=== PATIENT | male | born 1970 | race Caucasian/White ===

== ENCOUNTER 2018-02-22 12:52 | Inpatient (IN) | payer BC ==
[2018-02-22 14:29] LABS: ADD MAN DIFF? NO
[2018-02-22 14:33] LABS: BASOPHILS % 0.3 % (0.0-2.0); EOSINOPHILS # 0.2 10^3/ul (0.0-0.5); EOSINOPHILS % 1.7 % (0.0-7.0); HEMATOCRIT 43.7 % (42.0-52.0); HEMOGLOBIN 14.9 g/dl (14.0-18.0); LYMPHOCYTES # 1.9 10^3/ul (0.8-2.9); MEAN CORPUSCULAR HEMOGLOBIN 29.8 pg (29.0-33.0); MEAN CORPUSCULAR HGB CONC 34.1 g/dl (32.0-37.0); MEAN CORPUSCULAR VOLUME 87.4 fl (82.0-101.0); MEAN PLATELET VOLUME 10.5 fl (7.4-10.4); MONOCYTE # 1.3 10^3/ul (0.3-0.9); MONOCYTES % 10.6 % (0.0-11.0); NEUTROPHIL # 9.1 10^3/ul (1.6-7.5); NEUTROPHILS % 71.9 % (39.0-77.0); PLATELET COUNT 175 10^3/UL (140-415); RED CELL DISTRIBUTION WIDTH 13.2 % (11.5-14.5)
[2018-02-22 14:33] LABS: WHITE BLOOD COUNT 12.7 10^3/ul (4.8-10.8)
[2018-02-22 14:36] LABS: ADD UMIC YES; UR ASCORBIC ACID NEGATIVE (NEGATIVE); UR BILIRUBIN (Dip) NEGATIVE (NEGATIVE); UR BLOOD (Dip) 1+ mg/dL (NEGATIVE); UR CLARITY CLEAR (CLEAR); UR COLOR YELLOW (YELLOW); UR GLUCOSE (Dip) NEGATIVE (NEGATIVE); UR KETONES (Dip) NEGATIVE (NEGATIVE); UR LEUKOCYTE ESTERASE (Dip) NEGATIVE Leu/ul (NEGATIVE); UR NITRITE (Dip) NEGATIVE (NEGATIVE); UR RBC 0 /HPF (0-5); UR SPECIFIC GRAVITY (Dip) 1.004 (1.003-1.030); UR TOTAL PROTEIN (Dip) NEGATIVE (NEGATIVE); UR UROBILINOGEN (Dip) NEGATIVE (NEGATIVE); UR WBC 0 /HPF (0-5)
[2018-02-22 14:53] LABS: ALANINE AMINOTRANSFERASE 61 IU/L (13-69); ALBUMIN 4.5 g/dl (3.3-4.9); ALBUMIN/GLOBULIN RATIO 1.21; ALKALINE PHOSPHATASE 123 IU/L (42-121); ANION GAP 15 (8-16); ASPARTATE AMINO TRANSFERASE 66 IU/L (15-46); BILIRUBIN,INDIRECT 5.9 mg/dl (0-1.1); BILIRUBIN,TOTAL 5.9 mg/dl (0.2-1.3); BLOOD UREA NITROGEN 9 mg/dl (7-20); CALCIUM 9.4 mg/dl (8.4-10.2); CARBON DIOXIDE 29 mmol/L (21-31); CHLORIDE 105 mmol/L (97-110); CREATININE 0.84 mg/dl (0.61-1.24); GLUCOSE 114 mg/dl (70-220); LIPASE 60 U/L (23-300); POTASSIUM 3.6 mmol/L (3.5-5.1); SODIUM 145 mmol/L (135-144); TOTAL PROTEIN 8.2 g/dl (6.1-8.1)
[2018-02-22] MEDS: IBUPROFEN 800 MG TAB PO (15:31)
[2018-02-22] MEDS: SODIUM CHLORIDE 0.9% 1L BAG IV* (15:32)
[2018-02-22] MEDS: VANCOMYCIN 1 GM (PMX) 250 ML IVPB (15:32)
[2018-02-22 16:33] LABS: LACTIC ACID 1.5 mmol/L (0.5-2.0)
[2018-02-22] MEDS ORDERED: LORAZEPAM 2 MG INJ IV ×2 (17:00→17:30)
[2018-02-22] MEDS ORDERED: MAGNESIUM HYDROXIDE 30ML CUP PO (17:00)
[2018-02-22] MEDS ORDERED: HYDROCODONE/APAP (5/325) TAB PO (17:00)
[2018-02-22] MEDS ORDERED: ACETAMINOPHEN 325 MG TAB PO (17:00)
[2018-02-22] MEDS ORDERED: NACL 0.9% 3 ML SYG IV (17:00)
[2018-02-22] MEDS ORDERED: DOCUSATE SODIUM 100 MG CAP PO (17:00)
[2018-02-22] MEDS ORDERED: ONDANSETRON 4 MG INJ IV ×2 (17:00)
[2018-02-22] MEDS ORDERED: CHLORDIAZEPOXIDE 25 MG CAP PO (18:00)
[2018-02-22 18:50] LABS: GAMMA GLUTAMYL TRANSPEPTIDASE 47 IU/L (0-50); LACTIC ACID 1.2 mmol/L (0.5-2.0)
[2018-02-22] MEDS: DEXTROSE 5%-0.45% NACL 1,000 ML IV (18:54)
[2018-02-22] MEDS: AZTREONAM 1 GM/NS (PMX) 50 ML IVPB (18:54)
[2018-02-22 19:08] LABS: INR 1.26; PT RATIO 1.3
[2018-02-22 19:09] LABS: PARTIAL THROMBOPLASTIN TIME 35.8 Sec (25.0-35.0)
[2018-02-22 20:51] LABS: LACTIC ACID 1.2 mmol/L (0.5-2.0)
[2018-02-23] MEDS: PANTOPRAZOLE (EC) 40 MG TAB PO (05:47)
[2018-02-23 05:49] LABS: ADD MAN DIFF? NO
[2018-02-23 06:07] LABS: WHITE BLOOD COUNT 10.3 10^3/ul (4.8-10.8)
[2018-02-23 06:07] LABS: BASOPHILS % 0.4 % (0.0-2.0); EOSINOPHILS # 0.3 10^3/ul (0.0-0.5); EOSINOPHILS % 2.4 % (0.0-7.0); HEMATOCRIT 39.2 % (42.0-52.0); HEMOGLOBIN 13.4 g/dl (14.0-18.0); LYMPHOCYTES # 1.4 10^3/ul (0.8-2.9); LYMPHOCYTES % 13.5 % (15.0-51.0); MEAN CORPUSCULAR HEMOGLOBIN 30.4 pg (29.0-33.0); MEAN CORPUSCULAR HGB CONC 34.2 g/dl (32.0-37.0); MEAN CORPUSCULAR VOLUME 88.9 fl (82.0-101.0); MEAN PLATELET VOLUME 10.4 fl (7.4-10.4); MONOCYTE # 1.2 10^3/ul (0.3-0.9); MONOCYTES % 11.6 % (0.0-11.0); NEUTROPHIL # 7.4 10^3/ul (1.6-7.5); NEUTROPHILS % 71.4 % (39.0-77.0); POSITIVE DIFF @See below; RED BLOOD COUNT 4.41 10^6/ul (4.70-6.10); RED CELL DISTRIBUTION WIDTH 13.4 % (11.5-14.5)
[2018-02-23 06:11] LABS: PLATELET COUNT 134 10^3/UL (140-415)
[2018-02-23] MEDS: DEXTROSE 5%-0.45% NACL 1,000 ML IV ×2 (06:16→19:59)
[2018-02-23 06:33] LABS: ALANINE AMINOTRANSFERASE 47 IU/L (13-69); ALBUMIN 3.6 g/dl (3.3-4.9); ALBUMIN/GLOBULIN RATIO 1.12; ALKALINE PHOSPHATASE 91 IU/L (42-121); ANION GAP 8 (8-16); ASPARTATE AMINO TRANSFERASE 41 IU/L (15-46); BLOOD UREA NITROGEN 7 mg/dl (7-20); CALCIUM 8.5 mg/dl (8.4-10.2); CARBON DIOXIDE 30 mmol/L (21-31); CHLORIDE 109 mmol/L (97-110); CREATININE 0.66 mg/dl (0.61-1.24); GLUCOSE 138 mg/dl (70-220); MAGNESIUM 2.1 mg/dl (1.7-2.5); POTASSIUM 4.1 mmol/L (3.5-5.1); SODIUM 143 mmol/L (135-144); TOTAL PROTEIN 6.8 g/dl (6.1-8.1)
[2018-02-23] MEDS: MULTIVITAMINS 10 ML, THIAMINE 100 MG, FOLIC ACID 1 MG in SOD CHLORIDE 0.9% 1,000 ML IVPB (11:05)
[2018-02-23] MEDS: IBUPROFEN 600 MG TAB PO (14:54)
[2018-02-24] MEDS: PANTOPRAZOLE (EC) 40 MG TAB PO (06:16)
[2018-02-24 06:26] LABS: ALANINE AMINOTRANSFERASE 41 IU/L (13-69); ALBUMIN/GLOBULIN RATIO 1.11; ALKALINE PHOSPHATASE 87 IU/L (42-121); ANION GAP 14 (8-16); ASPARTATE AMINO TRANSFERASE 26 IU/L (15-46); BILIRUBIN,INDIRECT 2.8 mg/dl (0-1.1); BILIRUBIN,TOTAL 2.8 mg/dl (0.2-1.3); BLOOD UREA NITROGEN 8 mg/dl (7-20); CALCIUM 8.7 mg/dl (8.4-10.2); CARBON DIOXIDE 29 mmol/L (21-31); CHLORIDE 106 mmol/L (97-110); CREATININE 0.74 mg/dl (0.61-1.24); GLUCOSE 141 mg/dl (70-220); MAGNESIUM 2.2 mg/dl (1.7-2.5); POTASSIUM 3.8 mmol/L (3.5-5.1); SODIUM 145 mmol/L (135-144); TOTAL PROTEIN 7.6 g/dl (6.1-8.1)
[2018-02-24] MEDS: DEXTROSE 5%-0.45% NACL 1,000 ML IV (09:47)
== END 2018-02-24 12:35 | disposition home or self-care (01) | DRG 392 ==
LOC: FTE 12:52 → MS2 16:49
DX: K52.9 Noninfective gastroenteritis and colitis, unspecified (principal); R17 Unspecified jaundice; N28.1 Cyst of kidney, acquired; D72.829 Elevated white blood cell count, unspecified; R74.0 Nonspecific elevation of levels of transaminase and lactic acid dehydrogenase [LDH]; Z72.89 Other problems related to lifestyle
CPT/HCPCS: 74176; 76700; 80053; 81001; 82977; 83605; 83690; 83735; 85025; 85610; 85730; 87040; 96374; 99291-25

== ENCOUNTER 2018-07-08 08:36 | Emergency (ER) | payer BC ==
[2018-07-08] MEDS: FLUORESCEIN STRIP BOTH EYES (09:21)
[2018-07-08] MEDS: TETRACAINE 0.5% 4 ML OPH BOTH EYES (09:21)
== END 2018-07-08 11:05 | disposition home or self-care (01) ==
LOC: FTE 08:36
DX: H10.13 Acute atopic conjunctivitis, bilateral (principal)
CPT/HCPCS: 99282